=== PATIENT | female | born 1990 | race Caucasian/White ===

== ENCOUNTER 2020-01-29 13:12 | Emergency (ER) | payer BC ==
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
--- NOTE | 2020-01-29 13:56 | CR ---
Left 4th finger: 4 views centered to the left 4th finger were obtained. Fracture is noted within the distal shaft of the proximal phalanx of the 4th digit. Displacement is seen by over a shaft width. Distal fragment is displaced in a volar direction. Diffuse soft tissue swelling is noted. Impression: 1. Left 4th finger fracture as described above. Diagnostic code #3 This report was dictated in MDT
[2020-01-29] MEDS ORDERED: Lidocaine 1% 10 ML MDV INJECT ONE (14:25)
[2020-01-29] MEDS ORDERED: cefTRIAXone 1 GM, Lidocaine 1% 2.1 ML IM SCH ×2 (14:30)
--- NOTE | 2020-01-29 15:30 | CR ---
Left 4th finger: Single lateral view of the left 4th finger were obtained. Comparison: Previous 4th finger exam performed earlier on the same day (1:26 PM). Previously displaced fracture shows evidence of reduction. Diffuse soft tissue swelling is noted. No additional abnormality is seen. Impression: 1. Significantly improved alignment of previous fracture. 2. Soft tissue swelling. Diagnostic code #3 This report was dictated in MDT
== END 2020-01-29 16:13 | disposition home or self-care (01) ==
LOC: JD.ED 13:12
DX: S62.625A Displaced fracture of middle phalanx of left ring finger, initial encounter for closed fracture (principal); Z91.040 Latex allergy status; V86.56XA Driver of dirt bike or motor/cross bike injured in nontraffic accident, initial encounter
CPT/HCPCS: 12001; 73140; 96372; 99283; J0696; J2001; 26755